=== PATIENT | female | born 1945 | race Caucasian/White ===

== ENCOUNTER 2018-10-14 11:18 | Day surgery (SDC) | payer MEDICARE, SELFPAY ==
[2018-10-14 11:46] VITALS: BP 129/90; PULSE 60; RESP 16; TEMP 36.3; O2SAT 100; BMI 42.8
[2018-10-14 12:00] LABS: Bedside Glucose 100 mg/dL (70-110)
[2018-10-14] MEDS: Cefazolin 2 GM in 0.9% Normal Saline 100 ML IV (13:19)
[2018-10-14 14:02] VITALS: BP 121/79; BP 129/90; PULSE 96; RESP 18; TEMP 36.7; O2SAT 96
--- NOTE | 2018-10-14 14:03 | OP.PCM_ITS ---
Report of Operation Date of Procedure: 10/14/18 Pre-Operative Diagnosis: Intrinsic sphincter deficiency Post-Operative Diagnosis: The same Surgery/Procedure Performed:: Cystoscopy and injection of Macroplastique into the urethra 2 vials total of 5 mL's Description of Surgical Findings:: Indication this is a 73-year-old female with mixed incontinence with overactive bladder and stress incontinence she has a history of prior injection for intr insic sphincter deficiency about it more than a year ago which worked really well for her however she understands that this is a procedure that may need to require more injections in the future since the injections can wear off and today she presents for another injection she says it is now wearing off and she has had more incontinence and more leakage of urine more stress incontinence. 73-year-old female taken back to the operating room at the smooth induction of anesthesia she was placed in the lithotomy position the urethra vaginal area prepped and draped in usual sterile fashion I used a 17 Guamanian offset urethroscope with a straight working channel I then prepared the Macroplastique injection. I then first injection at the 6 o'clock position with the bevel to pop advanced the needle to the first marking into the second smitha and then straighten out the scope I injected 1.5 cc of Macroplastique injected in the tissue Macroplastique material into the tissue until good bowel was formed. I then slowly withdrew this and then went back and went into the patient's left side and again bevel to pop advance the needle into the mucosa to the second smitha and then injected another 1.5 cc into the urethra and the site so does not nice bleb was formed pulled back and the injection stayed within the urethra I then went to the right side of the same injection of the right side of the 1.5 cc I change vials and then went to the anterior urethra and injected another 2 cc into the anterior urethra a total of 5 cc were used between the 2 vials and then I drain the bladder with a 12 Guamanian red rubber catheter after draining the bladder patient anesthetic was reversed I did not look back in the urethra since the injection went well nice and tight but I do not want to disrupt the injectio n by doing a cystoscopy the patient anesthetic was reversed to take back back good condition after she voids she will go home and then will consider in the office for follow-up. Type of Anesthesia:: General Drains: none - Admit VTE Documentation VTE Present on Admission: No VTE Mechan Device Prophylaxis: SCD's
--- NOTE | 2018-10-14 14:04 | DCINST_ITS ---
Discharge Diet: Light diet - advance as tolerated Discharge Activity: Return to Normal Activity Suture Line Care: Avoid Pulling/Pushing, Avoid Pinching/Bending Allergies/Adverse Reactions: Allergies No Known Allergies Allergy (Verified 10/11/18 12:49) Medications to take at Discharge Cholecalciferol (Vitamin D3) [Vitamin D3] 5,000 unit PO DAILY 09/02/17 Cyanocobalamin (Vitamin B-12) [Vitamin B-12] 1,000 mcg PO DAILY 09/02/17 Glipizide [Glucotrol] 10 mg PO DAILY 09/02/17 Hydrochlorothiazide [Hctz] 25 mg PO DAILY 09/02/17 Insulin Glargine,Hum.rec.anlog [Toujeo Solostar] 10 unit SQ DAILY 09/02/17 Levothyroxine Sodium 100 mcg PO DAILY 09/02/17 Lisinopril [Zestril] 10 mg PO DAILY 09/02/17 Metformin HCl [Metformin HCl ER] 750 mg PO BID 09/02/17 Metoprolol Tartrate [Lopressor (Beta Paul)] 25 mg PO DAILY 09/02/17 Pyridoxine HCl [Vitamin B-6] 100 mg PO DAILY 09/02/17 busPIRone [Buspar] 5 mg PO TID 09/02/17 Ciprofloxacin [Cipro] 500 mg PO BID #14 tab 09/10/17 Cyclobenzaprine [Flexeril] 5 mg PO TID PRN PRN 10/11/18 Dulaglutide [Trulicity] 1.5 mg SQ DOS SANTOS 10/11/18 Garlic 1,200 mg PO DAILY 10/11/18 Multivit-Min/FA/Lycopen/Lutein [Centrum Silver Tablet] 1 each PO DAILY 10/11/18 Oxybutynin Chloride [Oxybutynin Chloride ER] 10 mg PO DAILY 10/11/18 Primary Care Physician: Gris Arguello MD [Primary Care Provider] - Test Results: Test results from this visit will be discussed in further detail at your follow- up appointment, if applicable. Please Follow Up With: Luis Alberto Deluca MD When: in 2 weeks, please call to make an appointment.
[2018-10-14 14:15] VITALS: BP 129/90; BP 130/87; PULSE 85; RESP 18; O2SAT 100
[2018-10-14 14:25] VITALS: BP 129/90; BP 134/82; PULSE 86; RESP 18; TEMP 36.3; O2SAT 100
[2018-10-14 14:26] LABS: Bedside Glucose 79 mg/dL (70-110)
[2018-10-14 15:18] VITALS: BP 129/90; BP 145/75; PULSE 63; RESP 18; TEMP 36.1; O2SAT 95
== END 2018-10-14 15:25 | disposition home or self-care (01) ==
LOC: SDC 11:22 → AC 11:22
PROVIDERS: Family Provider Family Medicine; PCP Family Medicine; Referring Provider Urology; Visit Provider Urology
PROC: 3E0K8GC Introduction of Other Therapeutic Substance into Genitourinary Tract, Via Natural or Artificial Opening Endoscopic (ICD-10-PCS; CPT 52327; principal; 2018-10-14 13:00)
DX: N36.42 Intrinsic sphincter deficiency (ISD) (principal); N32.81 Overactive bladder; E03.9 Hypothyroidism, unspecified; E11.9 Type 2 diabetes mellitus without complications; Z79.4 Long term (current) use of insulin; Z79.899 Other long term (current) drug therapy; I10 Essential (primary) hypertension; F41.9 Anxiety disorder, unspecified; G47.30 Sleep apnea, unspecified; F32.9 Major depressive disorder, single episode, unspecified; N39.46 Mixed incontinence
CPT/HCPCS: 51715; 82962; J7120

== ENCOUNTER 2020-04-26 13:43 | Emergency (ER) | payer MEDICARE, SELFPAY ==
[2020-04-26 13:45] VITALS: BP 128/78; PULSE 97; RESP 16; TEMP 36.8; O2SAT 98; BMI 29.0
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
--- NOTE | 2020-04-26 14:08 | RAD_ITS ---
STUDY: X-RAY - LUMBAR SPINE REASON FOR EXAM: Female, 74 years old. INJURY, LBP TECHNIQUE: Three view(s) of the lumbar spine were obtained. COMPARISON: None FINDINGS: Normal lumbar lordosis. There is a mild dextroscoliosis of the lumbar spine. There is a normal alignment of the vertebrae. There is diffuse demineralization with multi-level endplate spondylosis. There is multi-level degenerative disc disease with multi-level disc space narrowing. There is no demonstrated fracture. There is atherosclerotic calcification of the abdominal aorta without a demonstrated aneurysm. RAD/Lumbar Spine 2 or 3 Views IMPRESSION: Degenerative changes of the spine, as detailed above. Mild dextroscoliosis Electronically Signed: Joseph Arenas MD at 14:47 EDT , Service support ,
--- NOTE | 2020-04-26 14:08 | RAD_ITS ---
STUDY: X-RAY - LEFT HAND REASON FOR EXAM: Female, 74 years old. INJURY TO LEFT HAND, BRUISING 3RD FINGER TECHNIQUE: Three view(s) of the hand. COMPARISON: None. FINDINGS: Bones are diffusely demineralized. There is an acute minimally displaced fracture of the middle phalanx of the third digit with soft tissue swelling. No other demonstrated fracture. Degenerative arthrosis at all visualized joint spaces, most notably in the DIP joints of the second of the fifth fingers. No suspicious erosive lesion. RAD/Hand Min 3 Views IMPRESSION: Diffuse osteopenia with an acute minimally displaced fracture in the middle phalanx of the third digit of the left hand with soft tissue swelling Electronically Signed: Joseph Arenas MD at 14:46 EDT , Service support ,
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
[2020-04-26] MEDS: traMADol 50 MG Tablet PO (14:45)
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
== END 2020-04-26 16:24 | disposition home or self-care (01) ==
PROVIDERS: Emergency Provider Emergency Medicine; PCP Family Medicine
DX: S62.623A Displaced fracture of middle phalanx of left middle finger, initial encounter for closed fracture (principal); S39.012A Strain of muscle, fascia and tendon of lower back, initial encounter; Y04.2XXA Assault by strike against or bumped into by another person, initial encounter; Y93.9 Activity, unspecified; Y92.9 Unspecified place or not applicable; I10 Essential (primary) hypertension; E11.9 Type 2 diabetes mellitus without complications; Z79.4 Long term (current) use of insulin; Z79.84 Long term (current) use of oral hypoglycemic drugs; Z79.899 Other long term (current) drug therapy
CPT/HCPCS: 72100; 73130; 99283

== ENCOUNTER → 2021-08-25 15:01 | Outpatient (CLI) | payer MEDICARE, SELFPAY ==
[2021-08-27 16:09] LABS: Endomysial Antibody IgA Negative (Negative)
[2021-08-27 22:55] LABS: Immunoglobulin A 228 mg/dL (64-422); t-Transglutaminase IgA <2 U/mL (0-3)
== END ==
PROVIDERS: PCP Family Medicine; Referring Provider Internal Medicine Gastroenterology; Visit Provider Internal Medicine Gastroenterology
DX: R10.9 Unspecified abdominal pain (principal)
CPT/HCPCS: 36415; 82784; 83516; 86140; 86255

== ENCOUNTER 2021-11-12 06:41 | Outpatient (CLI) | payer MEDICARE, SELFPAY ==
--- NOTE | 2021-11-12 06:44 | ECHOD_ITS ---
Reason For Study: AFIB/FLUTTER Procedure This was a 2D Doppler, Color Flow transthoracic echocardiogram. Exam performed in department. Left Ventricle Normal LV size. Mild concentric left ventricular hypertrophy. Left ventricular systolic function is lower limits of normal. The estimated ejection fraction is 50 %. No regional wall motion abnormalities noted. Right Ventricle Normal RV size. Normal systolic function. Atria Normal left atrium. Normal right atrium. Mitral Valve There is mild mitral annular calcification. Tricuspid Valve Normal tricuspid valve. Mild (1+) tricuspid valve insufficiency. Pulmonary artery systolic pressure is 36 mmHg. Aortic Valve Trisinus/trileaflet aortic valve. Pulmonic Valve The pulmonic valve is not well visualized. Great Vessels Normal aortic root. The pulmonary artery is normal size. Normal inferior vena cava. Pericardium/Pleural No pericardial effusion. MMode/2D Measurements & Calculations LVIDd: 4.9 cm IVSd: 1.3 cm Ao root diam: 3.7 cm LVIDs: 3.5 cm LVPWd: 1.2 cm RVDd: 3.7 cm FS: 28.6 % LAV(MOD-bp): 57.0 ml LVAd ap4: 23.9 cm2 LVAd ap2: 20.3 cm2 LAV(MOD-bp) Indexed: 24.6 ml/m2 LVLd ap4: 7.0 cm LVLd ap2: 7.1 cm LAV(MOD-sp2): 57.2 ml EDV(MOD-sp4): 67.5 ml EDV(MOD-sp2): 50.9 ml LAV(MOD-sp4): 57.4 ml EDV(sp4-el): 69.9 ml EDV(sp2-el): 49.3 ml LVAs ap4: 16.9 cm2 LVAs ap2: 13.5 cm2 LVLs ap4: 6.6 cm LVLs ap2: 5.7 cm ESV(MOD-sp4): 37.5 ml ESV(MOD-sp2): 27.5 ml ESV(sp4-el): 36.8 ml ESV(sp2-el): 26.9 ml EF(MOD-sp4): 44.4 % EF(MOD-sp2): 45.9 % EF(sp4-el): 47.3 % SV(MOD-sp4): 30.0 ml SV(MOD-sp2): 23.4 ml SV(sp4-el): 33.1 ml LA dimension(2D): 3.9 cm LA A4 area: 19.6 cm2 RA A4 area: 14.1 cm2 Doppler Measurements & Calculations Ao V2 max: 110.3 cm/sec LV V1 max: 73.8 cm/sec TR max douglas: 280.5 cm/sec Ao max P.9 mmHg LV V1 max P.2 mmHg TR max P.5 mmHg ECHO/Echo Complete Interpretation Summary Normal LV size. Mild concentric left ventricular hypertrophy. Left ventricular systolic function is lower limits of normal. The estimated ejection fraction is 50 %. Pulmonary artery systolic pressure is 36 mmHg. Ordering Physician: Krish Ron Referring Physician: NEDRA LIZARRAGA Performed By: Pippa Boyle, YUVALCS, RVT
--- NOTE | 2021-11-12 19:01 | STRESSREP ---
Stress Test Report Pharmacologic myocardial perfusion stress test. 76-year-old lady with a history of atrial fibrillation. Stress protocol: Resting EKG demonstrates atrial fibrillation with a rate of 95 bpm normal intervals are noted resting blood pressure is 142/82 mmHg. 0.4 mg of regadenoson was infused per usual protocol followed by rapid intravenous saline flush injection continuous EKG monitoring was performed. The maximum heart rate attained was noted to be 110 bpm which was 75% of max impact at heart rate the maximum workload was one metabolic equivalent. At rest there were no ST or T wave changes noted to suggest abnormal flow reserve and at peak infusion nonspecific ST changes were noted. The peak blood pressure was 152/94 mmHg. Myocardial perfusion protocol. 15.0 mCi of technetium 99m sestamibi was injected at rest. 0.4 mg of regadenoson was infused per usual protocol. At peak infusion 44.6 mCi of technetium 99m sestamibi was injected stress images were obtained stress and rest images were reconstructed and compared in the short axis vertical long and horizontal long axis. Perfusion SPECT analysis: Review of the stress images demonstrate normal uptake of tracer noted in the septum inferior wall and lateral wall. There is mild reduction of perfusion noted in the anterior wall on the stress and rest images to a similar extent suggestive of anterior breast wall attenuation. No obvious areas of reversibility are noted to suggest ischemia. Conclusion: Pharmacologic myocardial perfusion stress test with no obvious ischemia noted. Previous anterior infarct and or breast attenuation artifact cannot be completely excluded. Atrial fibrillation noted
== END 2021-11-12 23:59 | disposition home or self-care (01) ==
LOC: CVS 06:42
PROVIDERS: PCP Family Medicine; Referring Provider Internal Medicine Cardiovascular Disease; Visit Provider Internal Medicine Cardiovascular Disease
DX: I48.91 Unspecified atrial fibrillation (principal); I10 Essential (primary) hypertension; R94.31 Abnormal electrocardiogram [ECG] [EKG]
CPT/HCPCS: 78452; 93017; 93306; A9500; A4216; J2785

== ENCOUNTER 2021-12-22 10:06 | Outpatient (CLI) | payer MEDICARE, SELFPAY ==
[2021-12-22 10:11] LABS: Mucous, Urine 0 SEEN /hpf (<or=2+)
[2021-12-22 11:00] LABS: Hematocrit 37.9 % (37-47); Hemoglobin 12.4 g/dL (12.0-15.0); Mean Corp Hgb Conc 32.7 g/dL (32-36); Mean Corpuscular Hgb 30.6 pg (27.0-32.0); Mean Corpuscular Volume 93.6 fL (81-99); Platelet Count 285 K/mm3 (150-450); RBC Distribution Width CV 16.9 % (11.6-14.6); RBC Distribution Width SD 57.5 fl (35.1-43.9); Red Blood Count 4.05 M/mm3 (4.2-5.4); White Blood Count 8.1 K/mm3 (4.4-11.0)
[2021-12-22 11:01] LABS: Color, Urine Red (Yellow); Glucose, Dipstick Normal (Normal); Ketone-Dipstick 5 mg/dl (Negative); Leukocyte Esterase-Dipstick 500 /ul (Negative); Nitrite-Dipstick Negative (Negative); Occult Blood-Urine 250 /ul (Negative); Protein-Dipstick 500 mg/dl (Negative); Specific Gravity, Urine 1.015 (1.002-1.030); Urine Bilirubin Dipstick Negative (Negative); Urine Clarity Cloudy (Clear); Urine Urobilinogen Normal (Normal); Urine pH 6.5 (5.0 - 8.0)
[2021-12-22 11:08] LABS: Bacteria 1+ /hpf (None Seen); Red Blood Cells-Urine 25-50 SEEN /hpf (0-5); Squamous Epithelial Cells - UA 0-5 SEEN /hpf (5-10); White Blood Cells 25-50 SEEN /hpf (0-5)
[2021-12-22 11:17] LABS: Prothrombin Time (Protime)PT. 47.7 SECONDS (11.7-14.9)
[2021-12-22 11:20] LABS: International Normalized Ratio 5.3
== END 2021-12-22 23:59 | disposition home or self-care (01) ==
LOC: LAB 10:08
PROVIDERS: PCP Family Medicine; Visit Provider Physician Assistant Medical
DX: R31.9 Hematuria, unspecified (principal); E11.9 Type 2 diabetes mellitus without complications; Z79.4 Long term (current) use of insulin; Z79.01 Long term (current) use of anticoagulants
CPT/HCPCS: 36415; 81001; 85027; 85610; 87086; 87088

== ENCOUNTER 2022-01-01 11:34 | Outpatient (RCR) | payer MEDICARE, SELFPAY ==
[2021-12-09 09:31] LABS: International Normalized Ratio 3.6; Prothrombin Time (Protime)PT. 35.2 SECONDS (11.7-14.9)
[2021-12-25 14:37] LABS: International Normalized Ratio 2.3; Prothrombin Time (Protime)PT. 24.3 SECONDS (11.7-14.9)
[2022-01-01 12:11] LABS: International Normalized Ratio 2.6; Prothrombin Time (Protime)PT. 27.4 SECONDS (11.7-14.9)
== END 2022-01-01 18:00 | disposition home or self-care (01) ==
LOC: LAB 11:34
PROVIDERS: PCP Family Medicine; Visit Provider Internal Medicine Cardiovascular Disease
DX: I48.91 Unspecified atrial fibrillation (principal); Z79.899 Other long term (current) drug therapy
CPT/HCPCS: 36415; 85610

== ENCOUNTER 2022-01-29 09:26 | Outpatient (RCR) | payer MEDICARE, SELFPAY ==
[2022-01-08 11:11] LABS: International Normalized Ratio 3.2; Prothrombin Time (Protime)PT. 31.6 SECONDS (11.7-14.9)
[2022-01-22 11:21] LABS: International Normalized Ratio 3.1; Prothrombin Time (Protime)PT. 31.6 SECONDS (11.7-14.9)
[2022-01-29 10:18] LABS: International Normalized Ratio 2.7; Prothrombin Time (Protime)PT. 28.1 SECONDS (11.7-14.9)
== END 2022-01-29 18:00 | disposition home or self-care (01) ==
LOC: LAB 09:26
PROVIDERS: PCP Family Medicine; Referring Provider Internal Medicine Cardiovascular Disease; Visit Provider Internal Medicine Cardiovascular Disease
DX: I48.91 Unspecified atrial fibrillation (principal); Z79.01 Long term (current) use of anticoagulants
CPT/HCPCS: 36415; 85610

== ENCOUNTER 2022-08-21 11:15 | Outpatient (CLI) | payer MEDICARE, SELFPAY ==
[2022-08-21 12:50] LABS: Absolute Lymphocyte Count 2.24 X10^3/uL (0.83-4.51); Absolute Neutrophil Count 3.6 X10^3/uL (2.0-7.7); Basophil% 1.5 % (0-1); Eosinophil# 0.27 X10^3/uL; Hemoglobin 13.3 g/dL (12.0-15.0); Lymphocyte # 2.24 X10^3/ul (0.83-4.51); Lymphocyte % 33.5 % (19-41); Mean Corp Hgb Conc 32.4 g/dL (32-36); Mean Corpuscular Volume 98.6 fL (81-99); Mean Platelet Vol. 11.2 fl (6.2-12.0); Monocyte# 0.45 X10^3/uL; Monocyte% 6.7 % (0-10); NRBC Flagged by Analyzer 0.6 % (0-5); Neutrophil # 3.62 X10^3/uL (2.7-7.7); Neutrophil % 54.2 % (47-70); Platelet Count 267 K/mm3 (150-450); RBC Distribution Width CV 15.9 % (11.6-14.6); Red Blood Count 4.16 M/mm3 (4.2-5.4); White Blood Count 6.7 K/mm3 (4.4-11.0)
[2022-08-21 13:01] LABS: International Normalized Ratio 2.9; Prothrombin Time (Protime)PT. 29.9 SECONDS (11.7-14.9)
[2022-08-21 13:33] LABS: Anion Gap 7 (5-15); BUN 18 mg/dL (7-18); BUN/Creat Ratio 18.3 RATIO (10-20); Calcium,Total 9.6 mg/dL (8.5-10.1); Chloride 103 mmol/L (98-107); Creatinine, Serum 0.98 mg/dL (0.55-1.02); EST Glomerular Filtration Rate 59 mL/min (>60); Est Glom Filt Rate - Afr Amer 71 mL/min (>60); Free T3 2.9 pg/mL (2.18-3.98); Glucose 182 mg/dL (74-106); Potassium 4.2 mmol/L (3.5-5.1); Sodium Level 138 mmol/L (136-145); T4 Free Direct 1.19 ng/dL (0.76-1.46); Thyroid Stim Hormone (TSH) 1.37 uIU/mL (0.358-3.74)
== END 2022-08-21 23:59 | disposition home or self-care (01) ==
LOC: LAB 11:16
PROVIDERS: PCP Family Medicine; Referring Provider Nurse Practitioner Gerontology; Visit Provider Nurse Practitioner Gerontology
DX: I48.91 Unspecified atrial fibrillation (principal); R53.83 Other fatigue
CPT/HCPCS: 36415; 80048; 83735; 84439; 84443; 84481; 85025; 85610

== ENCOUNTER → 2023-02-05 | Outpatient (CLI) | payer MEDICARE, SELFPAY ==
--- NOTE | 2023-02-05 12:45 | RAD_ITS ---
INDICATION: mayen EXAMINATION/TECHNIQUE: X-RAY - XR Chest 2 Views COMPARISON: None. FINDINGS: LINES/DEVICES: None. LUNGS: No consolidation, edema or effusion. No pneumothorax. MEDIASTINUM AND CARDIOVASCULAR STRUCTURES: Cardiac silhouette not enlarged. Central airways and mediastinal contour are unremarkable. BONES AND SOFT TISSUES: No acute changes. RAD/Chest PA and Lateral IMPRESSION: No radiographic evidence of acute cardiopulmonary disease. Electronically Signed: Robb Becker MD at 18:52 EDT ,
[2023-02-05 13:01] LABS: Hematocrit 36.9 % (37-47); Hemoglobin 12.2 g/dL (12.0-15.0); Mean Corp Hgb Conc 33.1 g/dL (32-36); Mean Corpuscular Hgb 32.9 pg (27.0-32.0); Mean Corpuscular Volume 99.5 fL (81-99); Mean Platelet Vol. 10.4 fl (6.2-12.0); Platelet Count 278 K/mm3 (150-450); RBC Distribution Width CV 15.6 % (11.6-14.6); RBC Distribution Width SD 56.8 fl (35.1-43.9); Red Blood Count 3.71 M/mm3 (4.2-5.4); White Blood Count 9.6 K/mm3 (4.4-11.0)
[2023-02-05 13:09] LABS: International Normalized Ratio 2.2; Prothrombin Time (Protime)PT. 24.9 SECONDS (11.7-14.9)
[2023-02-05 13:44] LABS: AST(SGOT) 23 U/L (15-37); Alanine Aminotransfer ALT/SGPT 26 U/L (13-56); Albumin, Serum 3.6 g/dL (3.2-5.0); Alkaline Phosphatase 63 U/L (45-117); Anion Gap 9 (5-15); BUN 19 mg/dL (7-18); BUN/Creat Ratio 16.8 RATIO (10-20); Bilirubin, Direct 0.22 mg/dL (0.00-0.30); Calcium,Total 9.4 mg/dL (8.5-10.1); Chloride 102 mmol/L (98-107); Cholesterol 159 mg/dL (200); Creatinine, Serum 1.13 mg/dL (0.55-1.02); EST Glomerular Filtration Rate 50 mL/min (>60); Est Glom Filt Rate - Afr Amer 60 mL/min (>60); Globulin 3.6 g/dL (2.2-4.2); Glucose 283 mg/dL (74-106); High Density Lipoprotein 47 mg/dL; Potassium 4.5 mmol/L (3.5-5.1); Protein, Total 7.2 g/dL (6.4-8.2); Sodium Level 139 mmol/L (136-145); Thyroid Stim Hormone (TSH) 1.19 uIU/mL (0.358-3.74); Triglycerides 278 mg/dL; Very Low Density Lipoprotein 56 mg/dL (5-40)
== END | disposition home or self-care (01) ==
LOC: LAB 12:18
PROVIDERS: PCP Family Medicine; Referring Provider Internal Medicine Cardiovascular Disease; Visit Provider Internal Medicine Cardiovascular Disease
DX: R06.09 Other forms of dyspnea (principal); I48.91 Unspecified atrial fibrillation; E78.00 Pure hypercholesterolemia, unspecified; Z79.01 Long term (current) use of anticoagulants
CPT/HCPCS: 36415; 71046; 80048; 80061; 80076; 84443; 85027; 85610

== ENCOUNTER → 2023-03-08 | Outpatient (CLI) | payer MEDICARE, SELFPAY ==
--- NOTE | 2023-03-08 06:56 | ECHOD_ITS ---
Version 2 Reason For Study: BRINK, DM, HLD. Procedure This was a 2D Doppler, Color Flow transthoracic echocardiogram. Exam performed in department. Left Ventricle Normal LV size. Left ventricular systolic function is normal. The estimated ejection fraction is 65 %. No regional wall motion abnormalities noted. Right Ventricle Normal right ventricle. Normal systolic function. Atria The left atrium is mildly enlarged. Normal right atrium. Mitral Valve There is mild mitral annular calcification. Mild (1+) eccentric mitral valve insufficiency. Tricuspid Valve Normal tricuspid valve. Mild (1+) tricuspid valve insufficiency. Pulmonary artery systolic pressure is 34 mmHg. Aortic Valve Normal aortic valve. Pulmonic Valve Normal pulmonic valve. Great Vessels Normal aortic root. The pulmonary artery is normal size. Normal inferior vena cava. Pericardium/Pleural No pericardial effusion. MMode/2D Measurements & Calculations LVIDd: 5.6 cm IVSd: 1.1 cm Ao root diam: 3.5 cm LVIDs: 3.9 cm LVPWd: 1.1 cm RVDd: 3.6 cm FS: 30.3 % LAV(MOD-sp4): 73.6 ml EDV(MOD-sp4): 73.6 ml EDV(MOD-sp2): 41.9 ml ESV(MOD-sp4): 23.8 ml ESV(MOD-sp2): 13.5 ml EF(MOD-sp4): 67.7 % EF(MOD-sp2): 67.7 % SV(MOD-sp4): 49.8 ml SV(MOD-sp2): 28.4 ml LA A4 area: 23.2 cm2 LA dimension(2D): 4.7 cm RA A4 area: 19.8 cm2 Doppler Measurements & Calculations MV E max jacob: 102.3 cm/sec Lat Peak E' Jacob: 12.7 cm/sec Med Peak E' Jacob: 9.9 cm/sec E/E' lat: 8.0 E/E' med: 10.4 Ao V2 max: 123.9 cm/sec LV V1 max: 84.1 cm/sec PA V2 max: 89.8 cm/sec Ao max P.2 mmHg LV V1 max P.8 mmHg Ao V2 mean: 82.4 cm/sec LV V1 mean P.7 mmHg Ao mean P.2 mmHg LV V1 mean: 62.9 cm/sec Ao V2 VTI: 24.8 cm LV V1 VTI: 16.1 cm AV (velocity ratio): 0.65 TR max jacob: 280.1 cm/sec TR max P.4 mmHg ECHO/Echo Complete Interpretation Summary Normal LV size. Left ventricular systolic function is normal. The estimated ejection fraction is 65 %. There is mild mitral annular calcification. The left atrium is mildly enlarged. Ordering Physician: Krish Ron Referring Physician: Gris Orellana Performed By: Ivette Raygoza, NELA, RVT
--- NOTE | 2023-03-08 17:18 | STRESSREP ---
Stress Test Report Pharmacologic myocardial perfusion stress test. 77-year-old lady with a history of chest pain Resting EKG demonstrates sinus rhythm with a rate of 92 bpm. Resting blood pressure is 118/70 mmHg. 0.4 mg of regadenoson was infused per usual protocol followed by rapid intravenous saline flush injection. Continuous EKG monitoring was performed. The maximum heart rate was 95 bpm which was 65% of max impacted heart rate the maximum workload was 1 metabolic equivalent. At rest there were no ST or T wave changes noted to suggest ischemia and at peak infusion nonspecific ST changes were noted which did not meet the criteria for ischemia. No clinical angina is noted. The final blood pressure was 112/64 mmHg. Myocardial perfusion protocol. 14.2 mCi of technetium 99m sestamibi was injected at rest. 0.4 mg of regadenoson was infused per usual protocol. At peak infusion 44.7 mCi of technetium 99m sestamibi was injected stress images were obtained stress and rest images were reconstructed and compared in the short axis vertical long and horizontal long axis. Gated images were also obtained. Perfusion SPECT analysis: Review of the stress images demonstrate normal uptake of tracer noted in all areas of the myocardium. There is mild reduction of perfusion noted in the distal anterior wall. The resting images similar demonstrated normal uptake of tracer noted in all areas of the myocardium. Mild perfusion abnormality is noted in the distal anterior wall. No areas of reversibility are noted to suggest ischemia and no previous infarct is noted. The above is likely anterior breast wall attenuation artifact Gated SPECT analysis: The gated ejection fraction is 78%. Conclusion: Probably normal pharmacologic myocardial perfusion stress test. Preserved ejection fraction.
== END | disposition home or self-care (01) ==
LOC: CVS 06:52
PROVIDERS: PCP Family Medicine; Referring Provider Internal Medicine Cardiovascular Disease; Visit Provider Internal Medicine Cardiovascular Disease
DX: R06.09 Other forms of dyspnea (principal); I48.91 Unspecified atrial fibrillation; E11.9 Type 2 diabetes mellitus without complications; Z79.4 Long term (current) use of insulin; R53.83 Other fatigue; I10 Essential (primary) hypertension; E78.5 Hyperlipidemia, unspecified; E66.9 Obesity, unspecified; E03.9 Hypothyroidism, unspecified
CPT/HCPCS: 78452; 93017; 93306; A9500; A4216; J2785

== ENCOUNTER → 2023-03-16 | Outpatient (CLI) | payer MEDICARE, SELFPAY | END | disposition home or self-care (01) | LOC: PSN 13:54 | PROVIDERS: PCP Family Medicine; Referring Provider Internal Medicine Cardiovascular Disease; Visit Provider Internal Medicine Cardiovascular Disease | DX: R55 Syncope and collapse (principal) | CPT/HCPCS: 93225; 93226 ==

== ENCOUNTER → 2023-07-12 | Outpatient (CLI) | payer MEDICARE, SELFPAY ==
--- NOTE | 2023-07-12 12:10 | RAD_ITS ---
INDICATION: Cardioversion EXAMINATION/TECHNIQUE: X-RAY - XR Chest 2 Views COMPARISON: Prior study dated: 02/05/2023 FINDINGS: LINES/DEVICES: None. LUNGS: The lungs are well expanded. No consolidation, edema or effusion. No pneumothorax. MEDIASTINUM AND CARDIOVASCULAR STRUCTURES: Cardiac silhouette not enlarged. Central airways and mediastinal contour are unremarkable. Aorta is atherosclerotic. BONES AND SOFT TISSUES: Degenerative changes of the bilateral glenohumeral and acromioclavicular joints. RAD/Chest PA and Lateral IMPRESSION: No acute pulmonary finding. Electronically Signed: Michael Morin MD at 17:12 EDT ,
[2023-07-12 12:27] LABS: Absolute Lymphocyte Count 2.02 X10^3/uL (0.83-4.51); Absolute Neutrophil Count 3.3 X10^3/uL (2.0-7.7); Basophil# 0.09 X10^3/uL; Basophil% 1.5 % (0-1); Eosinophil# 0.21 X10^3/uL; Eosinophils% 3.5 % (0-5); Hematocrit 35.3 % (37-47); Hemoglobin 11.2 g/dL (12.0-15.0); Lymphocyte # 2.02 X10^3/ul (0.83-4.51); Lymphocyte % 33.7 % (19-41); Mean Corp Hgb Conc 31.7 g/dL (32-36); Mean Corpuscular Hgb 33.1 pg (27.0-32.0); Mean Corpuscular Volume 104.4 fL (81-99); Mean Platelet Vol. 11.1 fl (6.2-12.0); Monocyte# 0.31 X10^3/uL; Monocyte% 5.2 % (0-10); NRBC Flagged by Analyzer 0.5 % (0-5); Neutrophil # 3.34 X10^3/uL (2.7-7.7); Neutrophil % 55.8 % (47-70); Platelet Count 231 K/mm3 (150-450); RBC Distribution Width CV 15.2 % (11.6-14.6); RBC Distribution Width SD 58.2 fl (35.1-43.9); Red Blood Count 3.38 M/mm3 (4.2-5.4)
[2023-07-12 12:41] LABS: International Normalized Ratio 3.4; Prothrombin Time (Protime)PT. 34.8 SECONDS (11.7-14.9)
[2023-07-12 13:01] LABS: BNP,B-Type NATRIURETIC PEPTIDE 58.5 pg/mL (0-100)
[2023-07-12 13:25] LABS: Bacteria 0 SEEN /hpf (None Seen); Mucous, Urine 0 SEEN /hpf (<or=2+)
[2023-07-12 13:27] LABS: Anion Gap 8 (5-15); BUN 18 mg/dL (7-18); BUN/Creat Ratio 17.1 RATIO (10-20); Calcium,Total 9.4 mg/dL (8.5-10.1); Chloride 101 mmol/L (98-107); Creatinine, Serum 1.05 mg/dL (0.55-1.02); EST Glomerular Filtration Rate 54 mL/min (>60); Est Glom Filt Rate - Afr Amer 66 mL/min (>60); Glucose 204 mg/dL (74-106); Potassium 4.2 mmol/L (3.5-5.1); Sodium Level 135 mmol/L (136-145)
[2023-07-12 13:48] LABS: Color, Urine Yellow (Yellow); Glucose, Dipstick Normal (Normal); Ketone-Dipstick 5 mg/dl (Negative); Leukocyte Esterase-Dipstick 100 /ul (Negative); Nitrite-Dipstick Negative (Negative); Occult Blood-Urine 25 /ul (Negative); Protein-Dipstick 30 mg/dl (Negative); Specific Gravity, Urine 1.015 (1.002-1.030); Urine Bilirubin Dipstick Negative (Negative); Urine Clarity Clear (Clear); Urine Urobilinogen Normal (Normal)
[2023-07-12 14:00] LABS: Red Blood Cells-Urine 0-5 SEEN /hpf (0-5); Squamous Epithelial Cells - UA 5-10 SEEN /hpf (5-10); White Blood Cells 0-5 SEEN /hpf (0-5)
== END | disposition home or self-care (01) ==
PROVIDERS: PCP Family Medicine; Referring Provider Nurse Practitioner Gerontology; Visit Provider Nurse Practitioner Gerontology
DX: I48.91 Unspecified atrial fibrillation (principal); R53.83 Other fatigue; R06.09 Other forms of dyspnea
CPT/HCPCS: 36415; 71046; 80048; 81001; 83880; 85025; 85610; 87086; 87088

== ENCOUNTER 2023-08-02 09:18 | Day surgery (SDC) | payer MEDICARE, SELFPAY ==
[2023-07-19 11:34] LABS: International Normalized Ratio 2.3; Prothrombin Time (Protime)PT. 25.5 SECONDS (11.7-14.9)
[2023-07-30 08:39] VITALS: BMI 46.7
[2023-08-02 09:28] LABS: INR Fingerstick 2.2; Prothrombin Time Fingerstick 23.9 SEC (11.7-14.9)
--- NOTE | 2023-08-02 11:13 | PCM.OP.PRO ---
Procedure Report Date of Procedure: 08/02/23 DC cardioversion. 78-year-old lady with a history of persistent atrial fibrillation on chronic anticoagulation and a therapeutic range for at least 4 weeks. The patient was brought to cardiac catheterization lab in the postabsorptive nonsedated state. Patient was seen by Dr. Medina of the critical care division. Informed consent was obtained. Anterior-posterior pads were applied. Patient was then administered 80 mg of intravenous propofol and after that 200 J of synchronized biphasic DC cardioversion energy were applied with prompt reversal to sinus rhythm. Patient tolerated the procedure well. Conclusion: Successful DC cardioversion from atrial fibrillation to sinus rhythm. Continue current medical therapy as per office protocol.
--- NOTE | 2023-08-02 12:13 | PCM.OP.PRO ---
Procedure Report Date of Procedure: 08/02/23 CONSCIOUS SEDATION REPORT DATE OF SERVICE: August 02, 2023 BRIEF HISTORY OF PRESENT ILLNESS: The patient is a 78-year-old female who presented to [facility] for elective outpatient cardioversion due to underlying atrial fibrillation. The patient denies ever having gone through a prior cardioversion. She reported no prior anesthetic complications. She does have a known history of obstructive sleep apnea, for which she is prescribed nocturnal CPAP therapy. The patient is anticoagulated on Coumadin with an INR today of 2.2. Her last surface echocardiogram demonstrated an ejection fraction of approximately 65%. PHYSICAL EXAMINATION: VITAL SIGNS: Reviewed and were acceptable. GENERAL: The patient is an obese female, in no apparent distress, speaking in full sentences. HEENT: Normocephalic, atraumatic. Mucous membranes are moist and pink. Good mouth opening noted. Trachea is midline. CHEST: S1, S2 irregularly irregular. No murmurs, rubs or gallops were noted. LUNGS: Clear to auscultation bilaterally without appreciable wheezes, rales or rhonchi. ABDOMEN: Soft, nontender, nondistended. Positive bowel sounds. EXTREMITIES: There is no clubbing, cyanosis or edema. ASA Class: II DESCRIPTION OF PROCEDURE: After confirmation of informed consent, the patient's anesthesia plan was reviewed in detail. Propofol was chosen. Risks and benefits were reviewed and the patient agreed to proceed. At 1107, the patient was given her first bolus of propofol. In total, the patient required 80 mg of propofol to achieve an appropriate level of sedation, after which time she was given a 200 joule synchronized cardioversion by Dr. Ron at the bedside. This was successful in achieving normal sinus rhythm. The patient was monitored until 1120, at which time she reached her baseline mental status and function. The patient tolerated the procedure well. COMPLICATIONS: None ESTIMATED BLOOD LOSS: None RECOMMENDATIONS: Okay to recover in usual fashion. Procedures Pulmonary [id number]: [id number] Con Sedation
== END 2023-08-02 12:21 | disposition home or self-care (01) ==
PROVIDERS: PCP Family Medicine; Referring Provider Internal Medicine Cardiovascular Disease; Visit Provider Internal Medicine Cardiovascular Disease
DX: I48.91 Unspecified atrial fibrillation (principal); Z79.01 Long term (current) use of anticoagulants; R07.9 Chest pain, unspecified; R06.09 Other forms of dyspnea; I10 Essential (primary) hypertension; R10.9 Unspecified abdominal pain
CPT/HCPCS: 36415; 36416; 85610; 92960; 93005; J7040

== ENCOUNTER 2025-03-30 11:59 | Outpatient (RCR) | payer OTHER, MEDICARE, SELFPAY ==
[2025-03-30 13:26] LABS: International Normalized Ratio 1.7; Prothrombin Time (Protime)PT. 20.1 SECONDS (11.7-14.9)
== END 2025-03-30 18:00 | disposition home or self-care (01) ==
LOC: LAB 11:59
PROVIDERS: PCP Family Medicine; Referring Provider Nurse Practitioner Gerontology; Visit Provider Nurse Practitioner Gerontology
DX: I48.91 Unspecified atrial fibrillation (principal); Z79.01 Long term (current) use of anticoagulants
CPT/HCPCS: 36415; 85610